=== PATIENT | female | born 1985 | race Caucasian/White ===

== ENCOUNTER 2019-05-05 15:50 | Observation (INO) | payer OTHER ==
[~2019-05-05] VITALS: Ht 167.6 cm; Wt 73.0 kg
[2019-05-05 16:54] LABS: BILIRUBIN,URINE NEGATIVE (NEGATIVE); BLOOD, URINE 3+ (NEGATIVE); CLARITY/URINE CLEAR (CLEAR); COLOR,URINE YELLOW (YELLOW); GLUCOSE,URINE NEGATIVE (NEGATIVE); KETONES,URINE NEGATIVE (NEGATIVE); LEUKOCYTE ESTERASE ,URINE NEGATIVE (NEGATIVE); NITRITE, URINE NEGATIVE (NEGATIVE); PROTEIN URINE NEGATIVE (NEGATIVE); UROBILINOGEN,URINE 0.2 (0.2-1.0)
[2019-05-05 17:02] LABS: BACTERIA,URINE FEW /HPF (None Seen); MUCUS,URINE 1+ /LPF (None Seen)
[2019-05-05] MEDS ORDERED: NITROFURANTOIN MONOHYD/M-CRYST 100 MG CAPSULE PO ONE (19:00)
== END 2019-05-05 19:10 | disposition home or self-care (01) ==
LOC: SPU 15:50
PROVIDERS: ADMIT Specialist; ATTEND Specialist
DX: O26.893 Other specified pregnancy related conditions, third trimester (principal); R11.0 Nausea; Z3A.28 28 weeks gestation of pregnancy
CPT/HCPCS: 76805; 81000; 87086; G0378

== ENCOUNTER 2019-06-26 17:53 | Observation (INO) | payer OTHER | END 2019-06-26 20:05 | disposition home or self-care (01) | LOC: SPU 17:53 | PROVIDERS: ADMIT Specialist; ATTEND Specialist | DX: O62.9 Abnormality of forces of labor, unspecified (principal); Z3A.00 Weeks of gestation of pregnancy not specified | CPT/HCPCS: 59025; 81002; G0378 ==

== ENCOUNTER 2019-07-18 05:25 | Inpatient (IN) | payer OTHER ==
[~2019-07-18] VITALS: Ht 167.6 cm; Wt 79.4 kg
[2019-07-18] MEDS ORDERED: LR 1,000 ML IV SCH ×2 (05:34→09:43)
[2019-07-18] MEDS ORDERED: CLINDAMYCIN 900 mg/50mL D5W 50 ML IV ONE (05:45)
[2019-07-18] MEDS ORDERED: CEFAZOLIN 2 GM IVPB PREMIX 50 ML IV ONE ×2 (05:52→14:30)
[2019-07-18 06:24] LABS: BASOPHILS # (AUTO) 0.1 K/uL (0.0-0.2); BASOPHILS % (AUTO) 0.9 % (0.0-2.0); EOSINOPHILS # (AUTO) 0.1 K/uL (0.0-0.4); EOSINOPHILS % (AUTO) 1.4 % (0.0-4.0); HEMATOCRIT 34.7 % (36-48); HEMOGLOBIN 12.6 g/dL (12.0-16.0); LYMPHOCYTES # (AUTO) 1.8 K/uL (1.0-5.5); LYMPHOCYTES % (AUTO) 21.4 % (20.5-51.5); MEAN CORPUSCULAR HEMOGLOBIN 34 pg (27-31); MEAN CORPUSCULAR HGB CONC 36 % (32-36); MEAN CORPUSCULAR VOLUME 93 fL (79.0-98.0); MONOCYTES # (AUTO) 0.6 K/uL (0.0-1.0); NEUTROPHILS # (AUTO) 5.7 K/uL (1.8-7.7); NEUTROPHILS % (AUTO) 69.3 % (40.0-70.0); PLATELET COUNT (AUTO) 194 K/uL (130-430); RED BLOOD CELL COUNT(AUTO) 3.72 MIL/uL (4.2-6.2); RED CELL DISTRIBUTION WIDTH 13.7 % (9.0-15.0); WHITE BLOOD COUNT (AUTO) 8.2 K/uL (4.8-10.8)
[2019-07-18] MEDS ORDERED: fentaNYL CITRATE/PF 100 MCG/2 ML AMP IVP PRN ×2 (07:30)
[2019-07-18] MEDS ORDERED: DIPHENHYDRAMINE INJ 50 MG/ML VIAL IVP PRN (07:30)
[2019-07-18] MEDS ORDERED: NALBUPHINE HCL 10 MG/ML AMP IVP PRN (07:30)
[2019-07-18] MEDS ORDERED: ONDANSETRON HCL 4 MG/2 ML VIAL IVP PRN (07:30)
[2019-07-18] MEDS ORDERED: KETOROLAC TROMETHAMINE 60 MG/2 ML VIAL IM PRN (07:30)
[2019-07-18] MEDS ORDERED: NALOXONE HCL 0.4 MG/ML AMP (NARCAN) IVP PRN ×2 (07:30)
[2019-07-18] MEDS ORDERED: MORPHINE SULFATE 10MG/10ML PF AMP SP SCH (07:30)
[2019-07-18 08:36] LABS: BILIRUBIN,URINE NEGATIVE (NEGATIVE); BLOOD, URINE 1+ (NEGATIVE); CLARITY/URINE CLEAR (CLEAR); COLOR,URINE YELLOW (YELLOW); GLUCOSE,URINE NEGATIVE (NEGATIVE); KETONES,URINE NEGATIVE (NEGATIVE); LEUKOCYTE ESTERASE ,URINE TRACE (NEGATIVE); NITRITE, URINE NEGATIVE (NEGATIVE); PROTEIN URINE NEGATIVE (NEGATIVE); UROBILINOGEN,URINE 0.2 (0.2-1.0)
[2019-07-18] MEDS ORDERED: NS IRRIG SOLN 1000 ML IR ONE (08:52)
[2019-07-18] MEDS ORDERED: BUPIVACAINE /DEX PF 0.75% SPINAL 2 ML AMP INJ ONE (08:52)
[2019-07-18] MEDS ORDERED: LR 1,000 ML IV.SOLN IV ONE (08:52)
[2019-07-18] MEDS ORDERED: ONDANSETRON HCL 4 MG/2 ML VIAL IVP ONE (08:52)
[2019-07-18] MEDS ORDERED: MORPHINE SULFATE 10MG/10ML PF AMP EP ONE (08:52)
[2019-07-18 09:03] LABS: BACTERIA,URINE FEW /HPF (None Seen); MUCUS,URINE 1+ /LPF (None Seen)
[2019-07-18] MEDS ORDERED: OXYTOCIN/0.9 % SODIUM CHLORIDE 1,000 ML IV SCH (09:43)
[2019-07-18] MEDS ORDERED: RHO(D) IMMUNE GLOBULIN/MALTOSE 1500 UNITS/1.3 ML (WINHRO) IM PRN (09:45)
[2019-07-18] MEDS ORDERED: ANUSOL 1 EA SUPP.RECT (PREPARATION H) RC PRN (09:45)
[2019-07-18] MEDS ORDERED: LANOLIN 7 GM OINT. TP PRN (09:45)
[2019-07-18] MEDS ORDERED: TEMAZEPAM 15 MG CAPSULE PO PRN (09:45)
[2019-07-18] MEDS ORDERED: OXYCODONE/ACETAMINOPHEN *10*mg/325 mg TABLET PO PRN (09:45)
[2019-07-18] MEDS ORDERED: MEASLES,MUMPS&RUBELLA VACC/PF 12500 UNIT/0.5 ML VIAL SUBQ PRN (09:45)
[2019-07-18] MEDS ORDERED: BISACODYL 10 MG/SUPPOSITORY RC PRN (09:45)
[2019-07-18] MEDS ORDERED: HYDROcodone/ACETAMIN 5-325 MG TAB (NORCO/ VICODIN) PO PRN (09:45)
[2019-07-18] MEDS ORDERED: SENNOSIDES/DOCUSATE SODIUM 1 TAB TABLET(SENOKOT-S) PO PRN (09:45)
[2019-07-18] MEDS ORDERED: DIPH-TET-PERTUS Vaccine 0.5 ML VIAL (ADACEL) I.M. PRN (09:45)
[2019-07-18] MEDS ORDERED: OXYTOCIN 10 UNIT/ML VIAL ONE (10:40)
[2019-07-18 11:43] VITALS: BP_SYST 103
[2019-07-18] MEDS: KETOROLAC TROMETHAMINE 30 MG VIAL IVP SCH (17:42)
[2019-07-18] MEDS: CEFAZOLIN 1 GM IVPB PREMIX 50 ML IV SCH (17:43)
[2019-07-19] MEDS: CEFAZOLIN 1 GM IVPB PREMIX 50 ML IV SCH ×2 (00:06→06:16)
[2019-07-19] MEDS: KETOROLAC TROMETHAMINE 30 MG VIAL IVP SCH ×3 (00:06→12:12)
[2019-07-19 06:38] LABS: BASOPHILS % (AUTO) 0.3 % (0.0-2.0); EOSINOPHILS # (AUTO) 0.1 K/uL (0.0-0.4); EOSINOPHILS % (AUTO) 1.1 % (0.0-4.0); HEMATOCRIT 27.7 % (36-48); HEMOGLOBIN 9.9 g/dL (12.0-16.0); LYMPHOCYTES # (AUTO) 1.3 K/uL (1.0-5.5); LYMPHOCYTES % (AUTO) 16.8 % (20.5-51.5); MEAN CORPUSCULAR HEMOGLOBIN 34 pg (27-31); MEAN CORPUSCULAR HGB CONC 36 % (32-36); MEAN CORPUSCULAR VOLUME 94 fL (79.0-98.0); MONOCYTES # (AUTO) 0.5 K/uL (0.0-1.0); MONOCYTES % (AUTO) 6.9 % (1.7-9.3); NEUTROPHILS # (AUTO) 5.8 K/uL (1.8-7.7); NEUTROPHILS % (AUTO) 74.9 % (40.0-70.0); PLATELET COUNT (AUTO) 154 K/uL (130-430); RED BLOOD CELL COUNT(AUTO) 2.95 MIL/uL (4.2-6.2); RED CELL DISTRIBUTION WIDTH 13.7 % (9.0-15.0); WHITE BLOOD COUNT (AUTO) 7.7 K/uL (4.8-10.8)
[2019-07-19] MEDS: IBUPROFEN 600 MG TABLET PO SCH (18:00)
[2019-07-19] MEDS: OXYCODONE/ACETAMINOPHEN 5-325 TABLET PO PRN (18:11)
[2019-07-19] MEDS: DOCUSATE SODIUM 100 MG CAPSULE PO PRN (18:11)
[2019-07-19] MEDS: SIMETHICONE 80 MG TAB.CHEW PO PRN ×2 (21:25→23:54)
[2019-07-20] MEDS: OXYCODONE/ACETAMINOPHEN 5-325 TABLET PO PRN ×2 (00:52→04:55)
[2019-07-20] MEDS: SIMETHICONE 80 MG TAB.CHEW PO PRN (05:46)
[2019-07-20] MEDS: DOCUSATE SODIUM 100 MG CAPSULE PO PRN (05:47)
[2019-07-20] MEDS: IBUPROFEN 600 MG TABLET PO SCH ×2 (05:47→11:35)
== END 2019-07-20 16:25 | disposition home or self-care (01) | DRG 787 ==
LOC: SPU 05:25
PROVIDERS: ADMIT Specialist; ATTEND Specialist
PROC: 0DNU0ZZ Release Omentum, Open Approach (ICD-10-PCS; 2019-07-18)
PROC: 10D00Z1 Extraction of Products of Conception, Low, Open Approach (ICD-10-PCS; principal; 2019-07-18 07:30)
DX: O36.63X0 Maternal care for excessive fetal growth, third trimester, not applicable or unspecified (principal); D62 Acute posthemorrhagic anemia; O65.5 Obstructed labor due to abnormality of maternal pelvic organs; O34.211 Maternal care for low transverse scar from previous cesarean delivery; O99.62 Diseases of the digestive system complicating childbirth; K66.0 Peritoneal adhesions (postprocedural) (postinfection); Z37.0 Single live birth; Z3A.40 40 weeks gestation of pregnancy; Z30.2 Encounter for sterilization
CPT/HCPCS: 36415; 81000-TC; 81002-TC; 82947-TC; 85025; 86592; 86886; 86900; 86901; 94760; J0690; J1885; J2274; J2405; J2590; J3490; J7120